=== PATIENT | male | born 1955 | race Caucasian/White ===

== ENCOUNTER → 2019-11-17 | Outpatient (CLI) | payer BC, MEDICARE ==
[~2019-11-17] MED LIST: ASPI81TA45 PO; ATOR20TA37 PO; FLUT1BLS3 IH; FURO20TA3 PO; LOSA50TA14 PO; METO50TA82 PO; OMEP40CA42 PO; OXYC-307 PO; RANO500T2 PO
[2019-11-17 12:54] LABS: BASOPHILS # (AUTO) 0.07 x10^3/uL (0-0.1); BASOPHILS % (AUTO) 1 % (0-1); EOSINOPHILS # (AUTO) 0.36 x10^3/uL (0-0.4); EOSINOPHILS % (AUTO) 3 % (1-7); LYMPHOCYTES # (AUTO) 2.59 x10^3/uL (1-3.4); LYMPHOCYTES % (AUTO) 19 % (22-44); MD NO; MEAN CORPUSCULAR HEMOGLOBIN 32.7 pg (27.5-34.5); MEAN CORPUSCULAR HGB CONC 33.3 g/dL (33.2-36.2); MEAN CORPUSCULAR VOLUME 98.1 fL (81-97); MEAN PLATELET VOLUME 9.1 fL (7.4-10.4); MONOCYTES # (AUTO) 0.82 x10^3/uL (0.2-0.8); MONOCYTES % (AUTO) 6 % (2-9); NEUTROPHILS # (AUTO) 9.81 x10^3/uL (1.8-6.8); NEUTROPHILS % (AUTO) 72 % (42-75); PLATELET COUNT 231 x10^3/uL (130-400); RED BLOOD COUNT 4.56 x10^6/uL (4.38-5.82); RED CELL DISTRIBUTION WIDTH 13.4 % (9.4-14.8)
[2019-11-17 13:01] LABS: INTERNATIONAL NORMALIZED RATIO 0.96 (0.93-1.1); PROTHROMBIN TIME 10.2 Seconds (9.6-11.5)
[2019-11-17 13:02] LABS: ALBUMIN 3.6 g/dL (3.4-5.0); ANION GAP 5 mmol/L (5-15); CALCIUM 8.6 mg/dL (8.5-10.1); CHLORIDE 105 mmol/L (98-107)
[2019-11-17 13:06] LABS: ALANINE AMINOTRANSFERASE 25 U/L (12-78); ALKALINE PHOSPHATASE 129 U/L (45-117); BILIRUBIN,TOTAL 0.4 mg/dL (0.2-1.0); CREATININE 1.58 mg/dL (0.7-1.3); TOTAL PROTEIN 7.6 g/dL (6.4-8.2)
[2019-11-17 13:33] LABS: MICROSCOPIC NOT IND
[2019-11-17 13:41] LABS: CULTURE INDICATED? NO
== END | disposition home or self-care (01) ==
LOC: STAR 11:12
PROVIDERS: ATTEND Neurological Surgery
DX: Z01.818 Encounter for other preprocedural examination (principal); M48.08 Spinal stenosis, sacral and sacrococcygeal region; M48.04 Spinal stenosis, thoracic region; R79.1 Abnormal coagulation profile; R94.31 Abnormal electrocardiogram [ECG] [EKG]; R82.90 Unspecified abnormal findings in urine; Z01.810 Encounter for preprocedural cardiovascular examination; Z01.811 Encounter for preprocedural respiratory examination; Z01.812 Encounter for preprocedural laboratory examination
CPT/HCPCS: 36415; 71046; 80053; 81003; 85025; 85610; 85730; 93005

== ENCOUNTER → 2019-11-24 | Outpatient (CLI) | payer BC, MEDICARE ==
[2019-11-24 12:52] LABS: BASOPHILS # (AUTO) 0.04 x10^3/uL (0-0.1); BASOPHILS % (AUTO) 0 % (0-1); EOSINOPHILS # (AUTO) 0.35 x10^3/uL (0-0.4); EOSINOPHILS % (AUTO) 3 % (1-7); LYMPHOCYTES # (AUTO) 2.44 x10^3/uL (1-3.4); LYMPHOCYTES % (AUTO) 21 % (22-44); MD NO; MEAN CORPUSCULAR HEMOGLOBIN 32.3 pg (27.5-34.5); MEAN CORPUSCULAR HGB CONC 33.4 g/dL (33.2-36.2); MEAN CORPUSCULAR VOLUME 96.9 fL (81-97); MEAN PLATELET VOLUME 9.3 fL (7.4-10.4); MONOCYTES # (AUTO) 0.84 x10^3/uL (0.2-0.8); MONOCYTES % (AUTO) 7 % (2-9); NEUTROPHILS # (AUTO) 8.07 x10^3/uL (1.8-6.8); NEUTROPHILS % (AUTO) 69 % (42-75); PLATELET COUNT 234 x10^3/uL (130-400); RED BLOOD COUNT 4.39 x10^6/uL (4.38-5.82); RED CELL DISTRIBUTION WIDTH 13.6 % (9.4-14.8)
== END | disposition home or self-care (01) ==
LOC: LAB 12:27
PROVIDERS: ATTEND Neurological Surgery
DX: Z01.818 Encounter for other preprocedural examination (principal)
CPT/HCPCS: 36415; 85025

== ENCOUNTER 2019-12-01 07:00 | Observation (INO) | payer BC, MEDICARE ==
[~2019-12-01] VITALS: Ht 165.1 cm; Wt 99.1 kg
[2019-12-01 10:18] VITALS: BP 148/71
[2019-12-01] MEDS ORDERED: LACTATED RINGERS 1,000 ML IV SCH (10:21)
[2019-12-01] MEDS ORDERED: BUPIVACAINE 0.25% ONE (10:23)
[2019-12-01] MEDS ORDERED: VANCOMYCIN 1,000 MG ONE (10:24)
[2019-12-01] MEDS ORDERED: EPINEPHRINE 1 MG/ML, 1ML ONE (10:24)
[2019-12-01] MEDS ORDERED: BACITRACIN 50,000 UNIT ONE (10:24)
[2019-12-01] MEDS ORDERED: BUPIVACAINE/PF 0.5% ONE (10:24)
[2019-12-01] MEDS ORDERED: PROPOFOL 50 ML ONE ×2 (11:07→12:21)
[2019-12-01] MEDS ORDERED: MIDAZOLAM 1 MG/ML, 2ML ONE (11:08)
[2019-12-01] MEDS ORDERED: FENTANYL PF 250 MCG/5ML ONE (11:09)
[2019-12-01] MEDS ORDERED: LORazepam 2 MG/ML, 1ML IVPush PRN (12:00)
[2019-12-01] MEDS ORDERED: ONDANSETRON 2MG/ML, 2ML IV PRN ×2 (12:00→17:30)
[2019-12-01] MEDS ORDERED: OXYcodone 5 MG/5 ML ORAL.SOL UDC PO PRN (12:00)
[2019-12-01] MEDS ORDERED: HYDROmorphone 2 MG/ML, 1ML IVPush PRN (12:00)
[2019-12-01] MEDS ORDERED: FENTANYL PF 100 MCG/2ML ONE ×2 (12:35→14:15)
[2019-12-01] MEDS ORDERED: FENTANYL PF 100 MCG/2ML EPIDPUSH ONE (12:40)
[2019-12-01] MEDS ORDERED: ALBUTEROL SULFATE 2.5 MG/3 ML ONE (14:04)
[2019-12-01] MEDS: FENTANYL PF 100 MCG/2ML IV PRN ×3 (14:22→14:43)
[2019-12-01] MEDS ORDERED: ALBUTEROL SULFATE 2.5 MG/3 ML NPPB STA (14:32)
[2019-12-01] MEDS ORDERED: ROCURONIUM 10MG/ML,5ML ONE (14:42)
[2019-12-01] MEDS ORDERED: EPHEDRINE 50 MG/ML, 1ML ONE (14:42)
[2019-12-01] MEDS ORDERED: CEFAZOLIN 1,000 MG ONE (14:42)
[2019-12-01] MEDS ORDERED: GLYCOPYRROLATE 0.2MG/1ML, 5ML ONE (14:42)
[2019-12-01] MEDS ORDERED: PROPOFOL 10 MG/ML, 20ML ONE (14:42)
[2019-12-01] MEDS ORDERED: NEOSTIGMINE 1 MG/ML, 10ML ONE (14:42)
[2019-12-01 16:12] VITALS: BP 105/53
[2019-12-01] MEDS ORDERED: MAGNESIUM HYDROXIDE 8%, 30ML UDC PO PRN (17:30)
[2019-12-01] MEDS ORDERED: METHOCARBAMOL 750 MG TABLET PO PRN (17:30)
[2019-12-01] MEDS ORDERED: DIPHENHYDRAMINE 25 MG CAPSULE PO PRN (17:30)
[2019-12-01] MEDS ORDERED: BISACODYL 10 MG SUPP PR PRN (17:30)
[2019-12-01] MEDS ORDERED: LABETALOL 5 MG/ML SYR. (IV ONLY) IV PRN (17:30)
[2019-12-01] MEDS ORDERED: morphine SULFATE 10 MG/ML, 1ML IV PRN (17:30)
[2019-12-01] MEDS: D5%-0.9% NACL+KCL 20MEQ 1,000 ML IV SCH (17:33)
[2019-12-01] MEDS: FUROSEMIDE 40 MG TABLET PO SCH (17:33)
[2019-12-01] MEDS: METOPROLOL TARTRATE 50 MG TAB PO SCH (17:34)
[2019-12-01] MEDS: HYDROcodone/APAP 10/325 MG TABLET PO PRN ×2 (18:20→22:57)
[2019-12-01 18:29] VITALS: BP 134/66
[2019-12-01] MEDS: RANOLAZINE 500 MG TAB.ER.12H PO SCH (20:30)
[2019-12-01] MEDS: FAMOTIDINE 20 MG TABLET PO SCH (20:30)
[2019-12-01] MEDS ORDERED: ATORVASTATIN 20 MG TABLET PO SCH (21:00)
[2019-12-01] MEDS: CEFAZOLIN PMX 1GM/50ML 50 ML IVPB SCH (22:56)
[2019-12-01] MEDS ORDERED: CEFAZOLIN PMX 1GM/50ML 50 ML IVPB SCH (23:00)
[2019-12-02 00:11] VITALS: BP 116/61
[2019-12-02] MEDS: D5%-0.9% NACL+KCL 20MEQ 1,000 ML IV SCH (03:30)
[2019-12-02 04:17] VITALS: BP 124/61
[2019-12-02 05:10] LABS: BASOPHILS # (AUTO) 0.02 x10^3/uL (0-0.1); BASOPHILS % (AUTO) 0 % (0-1); EOSINOPHILS % (AUTO) 0 % (1-7); LYMPHOCYTES # (AUTO) 1.22 x10^3/uL (1-3.4); LYMPHOCYTES % (AUTO) 8 % (22-44); MD NO; MEAN CORPUSCULAR HEMOGLOBIN 32.3 pg (27.5-34.5); MEAN CORPUSCULAR HGB CONC 33.3 g/dL (33.2-36.2); MEAN CORPUSCULAR VOLUME 97.2 fL (81-97); MEAN PLATELET VOLUME 9.6 fL (7.4-10.4); MONOCYTES # (AUTO) 0.61 x10^3/uL (0.2-0.8); MONOCYTES % (AUTO) 4 % (2-9); NEUTROPHILS # (AUTO) 14.49 x10^3/uL (1.8-6.8); NEUTROPHILS % (AUTO) 89 % (42-75); PLATELET COUNT 220 x10^3/uL (130-400); RED BLOOD COUNT 3.67 x10^6/uL (4.38-5.82); RED CELL DISTRIBUTION WIDTH 13.1 % (9.4-14.8)
[2019-12-02 05:22] LABS: CHLORIDE 108 mmol/L (98-107)
[2019-12-02 05:33] LABS: ANION GAP 6 mmol/L (5-15); CALCIUM 8.5 mg/dL (8.5-10.1); CREATININE 1.53 mg/dL (0.7-1.3)
[2019-12-02] MEDS: METOPROLOL TARTRATE 50 MG TAB PO SCH (05:49)
[2019-12-02] MEDS: CEFAZOLIN PMX 1GM/50ML 50 ML IVPB SCH (05:49)
[2019-12-02] MEDS: FUROSEMIDE 40 MG TABLET PO SCH (05:49)
[2019-12-02 05:50] VITALS: BP 138/69
[2019-12-02] MEDS ORDERED: OMEPRAZOLE 20 MG CAPSULE.DR PO SCH (06:00)
[2019-12-02 06:32] VITALS: BP 125/67
[2019-12-02] MEDS: RANOLAZINE 500 MG TAB.ER.12H PO SCH (08:24)
[2019-12-02] MEDS: FAMOTIDINE 20 MG TABLET PO SCH (08:24)
[2019-12-02] MEDS ORDERED: LOSARTAN 25MG TABLET PO SCH (09:00)
[2019-12-02] MEDS ORDERED: SENNA/DOCUSATE TABLET PO SCH (09:00)
[2019-12-02 10:44] VITALS: BP 126/59
[2019-12-02] MEDS ORDERED: METH750T87 PO (10:56)
[2019-12-02] MEDS ORDERED: DOXY100T PO (10:57)
[2019-12-02] MEDS ORDERED: DOXYCYCLINE 100MG TABLET PO SCH (21:00)
== END 2019-12-02 11:10 | disposition home or self-care (01) ==
LOC: EDSTATUS 07:00 → ORIP 10:02 → INTOOBSV 10:02 → 4NE 16:33 → DCLOUNGE 12-02 11:03
PROVIDERS: ADMIT Neurological Surgery; ATTEND Neurological Surgery
DX: M47.816 Spondylosis without myelopathy or radiculopathy, lumbar region (principal); M51.26 Other intervertebral disc displacement, lumbar region; I50.9 Heart failure, unspecified; F17.210 Nicotine dependence, cigarettes, uncomplicated; Z79.899 Other long term (current) drug therapy
CPT/HCPCS: 36415; 63045; 63047; 63048; 72100; 80048; 85025; 95938; 95941; 96365; 96366; 97161; 97165; G0378; J0171; J0690; J2250; J2704; J2710; J3010; J3370; J3480; J3490; J7120; S0020